=== PATIENT | female | born 1985 | race Caucasian/White ===

== ENCOUNTER 2016-09-12 19:09 | Emergency (ER) | payer BC ==
[2016-09-12 19:24] VITALS: BP 132/79
--- NOTE | 2016-09-12 19:43 | UC ---
Dizzy HPI HPI Summary: while in shower this am, felt dizzy and light-headed and had trouble catching breath. This went away but had another few spells at work. Noted SOB, tunnel/ dark vision, fast heart rate, weakness like she was about to pass out, and an impending sense of doom. Spells would mostly resolve, but still "didn't feel right" for most of day. History of anemia after of son in 2006 (but we had a normal CBC in our lab in 2010). She was prescribed iron back then, hasn't really taken it, but did take it this AM prior to the episode in the shower. - History Of Current Complaint Chief Complaint: UCGeneralIllness Stated Complaint: SHB,DIZZINESS-(ANEMIC) Time Seen by Provider: 09/12/16 19:18 Hx Obtained From: Patient Hx Last Menstrual Period: 09/07/16 Onset/Duration: Sudden Onset, Lasting Minutes - spells last 15 min to an hour, varying severity Severity Initially: Severe Severity Currently: Mild Character: Lightheaded, Weak, Dizzy Aggravating Factor(s): Nothing Alleviating Factor(s): Rest Associated Signs And Symptoms: Positive: Nausea, Diaphoresis, SOB, Palpitations , Visual Changes - tunnel vision. Negative: Vomiting, Tinnitus, Chest Pain, Unsteady Gait, Decreased Oral Intake, Change In Medication, Change In Diet, OTC Medications - Risk Factors Cardiac Risk Factors: Negative CVA Risk Factor: Negative - Allergies/Home Medications Allergies/Adverse Reactions: Allergies Allergy/AdvReac Type Severity Reaction Status Date / Time Penicillins Allergy Unknown Verified 09/12/16 19:18 Reaction Details Home Medications: Home Medications Ferrous Fumarate [Iron] 18 mg PO DAILY 09/12/16 [History Confirmed 09/12/16] PMH/Surg Hx/FS Hx/Imm Hx Previously Healthy: Yes - Surgical History Surgical History: None - Family History Known Family History: Negative: Cardiac Disease, Respiratory Disease - Social History Occupation: Employed Full-time Lives: With Family Alcohol Use: None Substance Use Type: None Smoking Status (MU): Never Smoked Tobacco - Immunization History Most Recent Influenza Vaccination: 2016 Review of Systems Constitutional: Fatigue Skin: Negative Eyes: Other - tunnel vision with spells ENT: Negative Respiratory: Shortness Of Breath Cardiovascular: Palpitations Gastrointestinal: Negative Genitourinary: Negative Motor: Negative Neurovascular: Negative Musculoskeletal: Negative Neurological: Weakness Psychological: Negative All Other Systems Reviewed And Are Negative: Yes Physical Exam Triage Information Reviewed: Yes Appearance: Well-Appearing, No Pain Distress, Well-Nourished Vital Signs: Initial Vital Signs Temp 98.4 F 09/12/16 19:19 Pulse 86 09/12/16 19:19 Resp 16 09/12/16 19:19 BP 132/79 09/12/16 19:19 Pulse Ox 100 09/12/16 19:19 Vital Signs Reviewed: Yes Eye Exam: Normal Eyes: Positive: Conjunctiva Clear ENT Exam: Normal ENT: Positive: Normal ENT inspection Neck exam: Normal Neck: Positive: Supple, Nontender Respiratory Exam: Normal Respiratory: Positive: Lungs clear, Normal breath sounds, No respiratory distress, No accessory muscle use Cardiovascular Exam: Normal Cardiovascular: Positive: RRR, No Murmur, Pulses Normal, Brisk Capillary Refill Abdominal Exam: Normal Abdomen Description: Positive: Nontender Musculoskeletal Exam: Normal Neurological Exam: Normal Neurological: Positive: Alert, Muscle Tone Normal Psychological Exam: Normal Skin Exam: Normal Diagnostics - Laboratory Diagnostic Studies Completed/Ordered: EKG neg. HCG neg Dizzy Course/Dx - Differential Dx/Diagnosis Differential Diagnosis/HQI/PQRI: Anxiety, Vasovagal Reaction Provider Diagnoses: panic attacks Discharge - Discharge Plan Condition: Stable Disposition: HOME Patient Education Materials: Hyperventilation (ED)
[2016-09-13 10:44] LABS: Hematocrit 39 % (35-47); Hemoglobin 13.2 g/dl (12.0-16.0); Mean Corpuscular HGB Conc 34 g/dl (31-36); Mean Corpuscular Hemoglobin 29 pg (27-31); Mean Corpuscular Volume 87 fL (80-97); Mean Platelet Volume 10 um3 (7.4-10.4); Red Blood Count 4.53 10^6/ul (4.0-5.4); Red Cell Distribution Width 14 % (10.5-15); White Blood Count 8.5 10^3/ul (3.5-10.8)
[2016-09-13 11:08] LABS: BUN/Creatinine Ratio 30.4 (8-20); Calcium 9.2 mg/dL (8.6-10.3); EGFR African American 130.3 (>60); EGFR Non-African American 101.3 (>60)
== END 2016-09-12 20:08 | disposition home or self-care (01) ==
LOC: UCCORT 19:09
DX: F41.0 Panic disorder [episodic paroxysmal anxiety] (principal); R42 Dizziness and giddiness; Z32.02 Encounter for pregnancy test, result negative; Z88.0 Allergy status to penicillin
CPT/HCPCS: 36415; 80048; 81025; 85025; 93005; 99201; G0463

== ENCOUNTER 2017-07-27 14:39 | Emergency (ER) | payer BC ==
[2017-07-27 15:02] VITALS: BP 123/79
--- NOTE | 2017-07-27 15:02 | UC ---
Lower Extremity/Ankle HPI - HPI Summary HPI Summary: 31 year old female presents with right leg bruising. She was seen in the ER and a xray was negative. - History of Current Complaint Chief Complaint: UCLowerExtremity Stated Complaint: LEG BRUISED AND SWOLLEN Time Seen by Provider: 07/27/17 15:02 Hx Obtained From: Patient Hx Last Menstrual Period: 07/17/17 Onset/Duration: Lasting Days Severity Initially: Moderate Severity Currently: Moderate - Allergies/Home Medications Allergies/Adverse Reactions: Allergies Allergy/AdvReac Type Severity Reaction Status Date / Time Penicillins Allergy Unknown Verified 07/27/17 15:01 Reaction Details Home Medications: Home Medications Naproxen TAB* [Naprosyn 250 mg TAB*] 500 mg PO Q8H PRN 07/27/17 [History Confirmed 07/27/17] PMH/Surg Hx/FS Hx/Imm Hx Previously Healthy: Yes - Surgical History Surgical History: Yes Surgery Procedure, Year, and Place: tubal ligation - Family History Known Family History: Negative: Cardiac Disease, Respiratory Disease - Social History Alcohol Use: None Substance Use Type: None Smoking Status (MU): Never Smoked Tobacco - Immunization History Most Recent Influenza Vaccination: Review of Systems Constitutional: Negative Skin: Negative Eyes: Negative ENT: Negative Respiratory: Negative Cardiovascular: Negative Gastrointestinal: Negative Genitourinary: Negative Motor: Negative Neurovascular: Negative Musculoskeletal: Other: - right leg swelling/bruisingl Neurological: Negative Psychological: Negative All Other Systems Reviewed And Are Negative: Yes Physical Exam Triage Information Reviewed: Yes Vital Signs: Initial Vital Signs Temp 36.7 C 07/27/17 14:56 Pulse 73 07/27/17 14:56 Resp 16 07/27/17 14:56 BP 123/79 07/27/17 14:56 Pulse Ox 100 07/27/17 14:56 Vital Signs Reviewed: Yes Eye Exam: Normal ENT Exam: Normal Dental Exam: Normal Neck exam: Normal Neck: Positive: 1 Respiratory Exam: Normal Cardiovascular Exam: Normal Abdominal Exam: Normal Musculoskeletal Exam: Normal Musculoskeletal: Positive: Other: - right leg hematoma/swelling Neurological Exam: Normal Psychological Exam: Normal Skin Exam: Normal Lower Extremity Course/Dx - Differential Dx/Diagnosis Provider Diagnoses: right lower extremity edema/hematoma Discharge - Discharge Plan Condition: Stable Disposition: OTHER Discharge Disposition Comment: PATIENT SUGGESTED TO GO TO THE ER TO RULE OUT DVT Patient Education Materials: Hematoma (ED) Referrals: Zainab Goff MD [Primary Care Provider] - Additional Instructions: PLEASE GO TO THE ER FOR SEVERE LEFT CALF HEMATOMA
== END 2017-07-27 15:46 ==
LOC: UCCORT 14:39
DX: R60.0 Localized edema (principal); S80.11XD Contusion of right lower leg, subsequent encounter; X58.XXXD Exposure to other specified factors, subsequent encounter; Z88.0 Allergy status to penicillin
CPT/HCPCS: 99212; G0463